=== PATIENT | male | born 1960 | race Caucasian/White ===

== ENCOUNTER 2020-12-03 16:32 | Inpatient (IN) | payer SELFPAY ==
[~2020-12-03 16:32] MED LIST: Iopamidol-370 76% 500 ML 1 ML ONE
[2020-12-03 17:59] LABS: #Basophils 0.1 thou/uL (0.0-0.2); #Eosinphils 0.1 thou/uL (0.0-0.7); #Lymphocytes 2.1 thou/uL (1.20-3.40); #Monocytes 0.6 thou/uL (0.11-0.59); #Neutrophils 6.3 thou/uL (1.40-6.50); %Basophils 0.7 % (0.0-1.0); %Eosinophils 0.9 % (0.0-10.0); %Lymphocytes 22.8 % (21.0-51.0); %Monocytes 6.6 % (0.0-10.0); Hemoglobin 15.4 g/dL (14.0-18.0); Mean Corpuscular HGB CONC 35.2 g/dL (32.0-36.0); Mean Corpuscular Hemoglobin 31.6 pg (27.0-31.0); Mean Corpuscular Volume 89.8 fL (78.0-98.0); Mean Platelet Volume 8.5 fL (7.4-10.4); Platelet Count 213 thou/uL (130-400); RBC Distribution Width 12.5 % (11.5-14.5); Red Blood Cell (RBC) Count 4.87 mill/uL (4.70-6.10); White Blood Cell (WBC) Count 9.2 thou/uL (4.8-10.8)
[2020-12-03 18:22] LABS: ALT (SGPT) 15 U/L (8-55); AST (SGOT) 21 U/L (5-34); Albumin 4.1 g/dL (3.5-5.0); Alkaline Phosphatase 98 U/L (40-110); Anion Gap 13 mmol/L (10-20); BUN (Urea Nitrogen) 27 mg/dL (8.4-25.7); Calc. Creatinine Clearance 0 mL/min (70-130); Calcium 9.2 mg/dL (7.8-10.44); Carbon Dioxide 27 mmol/L (22-29); Chloride 105 mmol/L (98-107); Globulin 3.2 g/dL (2.4-3.5); Glucose 87 mg/dL (70-105); Potassium 4.2 mmol/L (3.5-5.1); Protein, Total 7.3 g/dL (6.0-8.3); Sodium 141 mmol/L (136-145)
[2020-12-03 18:43] LABS: CKMB 6.6 ng/mL (0-6.6)
[2020-12-03 21:27] LABS: Troponin I 0.476 ng/mL (< 0.028)
[2020-12-03] MEDS ORDERED: Enoxaparin Sodium 80 MG/0.8 ML SYRINGE ONE (21:36)
[2020-12-03] MEDS ORDERED: Ondansetron PF 4 MG/2 ML Vial IVP PRN (23:51)
[2020-12-03] MEDS ORDERED: hydrALAZINE 20 MG/ML VIAL SLOW IVP PRN (23:51)
[2020-12-03] MEDS ORDERED: Nitroglycerin 0.4 MG TAB (25 Tab Bottle) SL PRN (23:51)
[2020-12-03] MEDS ORDERED: Ondansetron ODT 4 MG TAB PO PRN (23:51)
[2020-12-03] MEDS ORDERED: Acetaminophen 325 MG TAB PO PRN (23:51)
[2020-12-04 00:06] LABS: Critical Call Chem Troponin I RESULT DECREASING; Troponin I 0.452 ng/mL (< 0.028)
[2020-12-04 03:52] VITALS: BMI 30.1
[2020-12-04 05:02] LABS: #Eosinphils 0.1 thou/uL (0.0-0.7); #Monocytes 0.5 thou/uL (0.11-0.59); #Neutrophils 4.8 thou/uL (1.40-6.50); %Basophils 0.3 % (0.0-1.0); %Eosinophils 1.2 % (0.0-10.0); %Monocytes 6.1 % (0.0-10.0); %Neutrophils 65.3 % (42.0-75.0); Mean Corpuscular HGB CONC 35.5 g/dL (32.0-36.0); Mean Corpuscular Hemoglobin 32.1 pg (27.0-31.0); Mean Corpuscular Volume 90.3 fL (78.0-98.0); Mean Platelet Volume 8.2 fL (7.4-10.4); Platelet Count 194 thou/uL (130-400); RBC Distribution Width 12.6 % (11.5-14.5); Red Blood Cell (RBC) Count 4.66 mill/uL (4.70-6.10); White Blood Cell (WBC) Count 7.4 thou/uL (4.8-10.8)
[2020-12-04 05:28] LABS: Anion Gap 13 mmol/L (10-20); BUN (Urea Nitrogen) 22 mg/dL (8.4-25.7); Calc. Creatinine Clearance 113 mL/min (70-130); Calcium 8.9 mg/dL (7.8-10.44); Carbon Dioxide 26 mmol/L (22-29); Cardiac Risk 3.5 (Less than 4.5); Chloride 104 mmol/L (98-107); Cholesterol 127 mg/dl (< 200 Desired); Glucose 101 mg/dL (70-105); HDL Cholesterol 36 mg/dL (>60 Neg Risk); LDL Cholesterol, Calculated 65 mg/dL; Potassium 3.7 mmol/L (3.5-5.1); Sodium 139 mmol/L (136-145); Triglycerides 131 mg/dL (Less than 150)
[2020-12-04] MEDS: Aspirin Chewable 81 MG TAB PO SCH (10:22)
[2020-12-04] MEDS: Enoxaparin Sodium 80 MG/0.8 ML SYRINGE SC SCH ×2 (10:22→21:43)
[2020-12-04 17:09] LABS: SARS-CoV-2 PCR by NAA Not Detected (NotDetected)
[2020-12-04] MEDS: Atorvastatin Calcium 40 MG TAB PO SCH (21:43)
[2020-12-05] MEDS: Enoxaparin Sodium 80 MG/0.8 ML SYRINGE SC SCH ×2 (09:11→21:08)
[2020-12-05] MEDS: Aspirin Chewable 81 MG TAB PO SCH (09:12)
[2020-12-05] MEDS: Atorvastatin Calcium 40 MG TAB PO SCH (21:08)
[2020-12-06 05:29] LABS: Hemoglobin 14.2 g/dL (14.0-18.0); Platelet Count 188 thou/uL (130-400)
[2020-12-06 05:44] LABS: Calc. Creatinine Clearance 107 mL/min (70-130)
[2020-12-06 07:51] VITALS: TEMP 97.7
[2020-12-06] MEDS: Enoxaparin Sodium 80 MG/0.8 ML SYRINGE SC SCH (09:35)
[2020-12-06] MEDS: Aspirin Chewable 81 MG TAB PO SCH (09:35)
[2020-12-06 17:02] VITALS: BP 168/88
== END 2020-12-06 14:20 | disposition home health service (06) | DRG 64 ==
LOC: ERS 16:32 → ERHOLD 21:03 → 2SE 12-04 03:06 → OBSVTOIN 12-04 16:41
PROVIDERS: ADMIT Student in an Organized Health Care Education/Training Program; ATTEND Internal Medicine
DX: I63.9 Cerebral infarction, unspecified (principal); I21.A1 Myocardial infarction type 2; G81.91 Hemiplegia, unspecified affecting right dominant side; Z20.822 Contact with and (suspected) exposure to COVID-19; F17.210 Nicotine dependence, cigarettes, uncomplicated; I10 Essential (primary) hypertension; R29.703 NIHSS score 3; Z71.6 Tobacco abuse counseling
CPT/HCPCS: 36415; 70450; 70551; 71045; 71275; 74174; 80048; 80053; 80061; 82553; 82565; 84484; 85014; 85018; 85025; 85049; 93005; 93306; 93880; 94760; 95712; 95816; 95819; 95957; 96372; G0378; J1650; Q9967; U0003; U0005